=== PATIENT | female | born 1980 | race Caucasian/White ===

== ENCOUNTER 2021-06-08 12:36 | Emergency (ER) | payer MEDICARE, OTHER ==
[2021-06-08] MEDS ORDERED: NAPROSYN500 MG PO (12:56)
== END 2021-06-08 13:06 | disposition home or self-care (01) ==
LOC: ER1 12:36
DX: K04.7 Periapical abscess without sinus (principal); Z88.8 Allergy status to other drugs, medicaments and biological substances; F17.210 Nicotine dependence, cigarettes, uncomplicated
CPT/HCPCS: 99282

== ENCOUNTER → 2022-07-14 | Outpatient (CLI) | payer OTHER ==
[~2022-07-14] MED LIST: NAPROSYN500 MG PO
[2022-07-14 18:18] LABS: HEMOGLOBIN 12.6 gm/dl (12.3-15.3); RED BLOOD COUNT 4.1 M/UL (4.00-5.10)
[2022-07-14 19:27] LABS: BUN/CREATININE RATIO 21 (0-10)
[2022-07-16 07:10] LABS: HEPATITIS B SURF AB QUANT >1000.0 mIU/mL (Immunity>9.9); RPR Non Reactive (Non Reactive); THYROXINE (T4) 9.4 ug/dL (4.5-12.0); VITAMIN D, 25-HYDROXY 24.3 ng/mL (30.0-100.0)
[2022-07-19 15:14] LABS: QUANTIFERON MITOGEN VALUE >10.00 IU/mL (.); QUANTIFERON NIL VALUE 0.05 IU/mL (.); QUANTIFERON TB1 AG VALUE 0.21 IU/mL (.); QUANTIFERON-TB GOLD PLUS Negative (Negative)
[2022-07-19 20:08] LABS: HBSAG SCREEN Negative (Negative); HCV AB >11.0 (0.0-0.9); HCV LOG10 5.447 (.); HEP A AB, IGM Negative (Negative); HEP B CORE AB, IGM Negative (Negative); HEPATITIS C QUANTITATION 280000 IU/mL (.)
== END ==
LOC: LAB 16:11
PROVIDERS: Nurse Practitioner
DX: Z11.1 Encounter for screening for respiratory tuberculosis (principal); Z11.3 Encounter for screening for infections with a predominantly sexual mode of transmission; F15.20 Other stimulant dependence, uncomplicated; F31.9 Bipolar disorder, unspecified; F25.0 Schizoaffective disorder, bipolar type; Z79.899 Other long term (current) drug therapy
CPT/HCPCS: 36415; 80053; 80061; 80074; 82248; 82607; 82728; 83036; 83540; 83735; 84436; 84443; 84481; 85025; 86317; 86592; 86704